=== PATIENT | male | born 1970 | race Caucasian/White ===

== ENCOUNTER 2019-05-21 16:57 | Emergency (ER) | payer MEDICAID, OTHER ==
[~2019-05-21] VITALS: Ht 172.7 cm; Wt 90.0 kg
[~2019-05-21 16:57] MED LIST: GABA300C; LISINOPRIL; METF500T3
[2019-05-21] MEDS ORDERED: SODIUM CHLORIDE 0.9% 1,000 ML IV ONE (18:30)
[2019-05-21] MEDS ORDERED: MORPHINE SULFATE 4 MG/ML CPJ (NOT FOR IM USE) IV STA (18:30)
[2019-05-21] MEDS ORDERED: KETOROLAC 30MG/ML VIAL IV STA (18:30)
[2019-05-21] MEDS ORDERED: CEFTRIAXONE 1 G PREMIX 50 ML IV ONE (18:30)
[2019-05-21] MEDS ORDERED: ONDANSETRON HCL 4MG/2ML INJ IV ONE (18:45)
[2019-05-21 19:46] LABS: BASOPHILS % 0.5 % (0.0-2.0); EOSINOPHILS % 0.3 % (0.0-5.0); HEMATOCRIT. 36.5 % (42.0-52.0); HEMOGLOBIN. 12.3 g/dL (14.0-18.0); LYMPHOCYTES % 13.6 % (20.0-50.0); MEAN CORPUSCULAR VOLUME 77.5 fL (80.0-94.0); MEAN PLATELET VOLUME 8.9 fl (7.4-10.4); MONOCYTES % 4.6 % (2.0-8.0); PLATELET 273 x1000/uL (130-400); RED BLOOD CELL COUNT 4.72 mill/uL (4.7-6.1); RED CELL DISTRIBUTION WIDTH 14.4 % (11.6-14.6)
[2019-05-21 19:50] LABS: CHLORIDE 102 mEq/L (98-107)
[2019-05-21 19:51] LABS: INR 0.9; PROTHROMBIN TIME 9.4 sec (9.6-11.0)
[2019-05-21 20:29] LABS: CLARITY URINE CLEAR (CLEAR); COLOR URINE YELLOW (YELLOW); KETONES URINE TRACE (NEGATIVE); LEUKOCYTE ESTERASE URINE NEGATIVE (NEGATIVE); NITRITE URINE NEGATIVE (NEGATIVE); OCCULT BLOOD URINE TRACE (NEGATIVE); PH URINE 5.5 (4.5-8.0); PROTEIN URINE 3+ (NEGATIVE); SPECIFIC GRAVITY URINE 1.026 (1.005-1.030); UROBILINOGEN URINE 0.2 E.U./dL (0.2-1.0)
[2019-05-21] MEDS ORDERED: HYDROCODONE/ACETAMINOPHEN 5/325MG TABLET PO ONE (21:15)
[2019-05-21 21:41] VITALS: BP 175/88
== END 2019-05-21 21:46 | disposition short-term general hospital (02) ==
LOC: ER 16:57
DX: G89.18 Other acute postprocedural pain (principal); E11.9 Type 2 diabetes mellitus without complications; I10 Essential (primary) hypertension; F12.10 Cannabis abuse, uncomplicated; R55 Syncope and collapse; R11.0 Nausea
CPT/HCPCS: 36415; 71045; 80053; 81003; 82962; 84145; 84484; 85025; 85610; 93005; 96361; 96365; 96375; 99285; J0696; J1885; J2405; J7030

== ENCOUNTER 2021-04-25 00:53 | Emergency (ER) | payer MEDICAID ==
[~2021-04-25] VITALS: Ht 177.8 cm; Wt 105.0 kg
[2021-04-25] MEDS ORDERED: LABETALOL 5MG/ML SYR 20 MG/4 ML SYRINGE IV ONE ×2 (01:30→07:15)
[2021-04-25 01:54] LABS: EOSINOPHILS % 0.9 % (0.0-5.0); HEMATOCRIT. 38.8 % (42.0-52.0); LYMPHOCYTES % 26.5 % (20.0-50.0); MEAN CORPUSCULAR HEMOGLOBIN 27.2 pg (28.0-32.0); MEAN CORPUSCULAR VOLUME 81.3 fL (80.0-94.0); MEAN PLATELET VOLUME 9.1 fl (7.4-10.4); MONOCYTES % 9.7 % (2.0-8.0); NEUTROPHILS % 61.9 % (40.0-76.0); PLATELET 231 x1000/uL (130-400); RED BLOOD CELL COUNT 4.76 mill/uL (4.7-6.1); RED CELL DISTRIBUTION WIDTH 13.4 % (11.6-14.6)
[2021-04-25 01:56] LABS: CHLORIDE 107 mEq/L (98-107)
[2021-04-25 02:00] LABS: ETHANOL BLOOD < 10 mg/dL
[2021-04-25 02:03] LABS: BETA HYDROXYBUTYRATE 0.1 mMol/L (0.0-0.3)
[2021-04-25] MEDS ORDERED: LABETALOL HCL 20MG/4ML CARPUJECT IV ONE (03:30)
[2021-04-25] MEDS ORDERED: LABETALOL 5MG/ML SYR 20 MG/4 ML SYRINGE IV NR (03:45)
[2021-04-25] MEDS ORDERED: IOHEXOL-350 100 ML BOTTLE ONE (06:15)
[2021-04-25] MEDS ORDERED: ASPIRIN 325MG EC TABLET PO ONE (07:30)
[2021-04-25 10:36] LABS: CLARITY URINE CLEAR (CLEAR); COLOR URINE YELLOW (YELLOW); KETONES URINE NEGATIVE (NEGATIVE); LEUKOCYTE ESTERASE URINE NEGATIVE (NEGATIVE); NITRITE URINE NEGATIVE (NEGATIVE); OCCULT BLOOD URINE 1+ (NEGATIVE); PH URINE 6.5 (4.5-8.0); PROTEIN URINE 3+ (NEGATIVE); UROBILINOGEN URINE 0.2 E.U./dL (0.2-1.0)
[2021-04-25 10:40] VITALS: BP 191/86
[2021-04-25 10:46] LABS: *AMPHETAMINES SCREEN URINE NEGATIVE (NEGATIVE)
[2021-04-25 10:47] LABS: *BARBITURATES SCREEN URINE NEGATIVE (NEGATIVE); *BENZODIAZEPINES SCREEN URINE NEGATIVE (NEGATIVE); *COCAINE SCREEN URINE NEGATIVE (NEGATIVE); METHADONE URINE SCREEN NEGATIVE (NEGATIVE); OPIATES URINE SCREEN NEGATIVE (NEGATIVE); PHENCYCLIDINE URINE SCREEN NEGATIVE (NEGATIVE)
[2021-04-25 10:48] LABS: CANNABINOID URINE SCREEN NEGATIVE (NEGATIVE)
== END 2021-04-25 11:03 | disposition short-term general hospital (02) ==
LOC: ER 00:53
DX: R41.82 Altered mental status, unspecified (principal); Z86.73 Personal history of transient ischemic attack (TIA), and cerebral infarction without residual deficits; F32.9 Major depressive disorder, single episode, unspecified; E11.9 Type 2 diabetes mellitus without complications; I10 Essential (primary) hypertension; F12.10 Cannabis abuse, uncomplicated; Z98.890 Other specified postprocedural states
CPT/HCPCS: 36415; 70450; 70496; 70498; 71045; 80053; 80305; 80320; 81003; 82010; 82140; 82962; 84484; 85025; 96374; 96376; 99285; J3490; Q9967; G0480

== ENCOUNTER 2021-09-02 17:45 | Emergency (ER) | payer MEDICAID ==
[~2021-09-02] VITALS: Ht 180.3 cm; Wt 90.0 kg
[2021-09-02 19:37] LABS: CLARITY URINE CLEAR (CLEAR); COLOR URINE YELLOW (YELLOW); KETONES URINE NEGATIVE (NEGATIVE); LEUKOCYTE ESTERASE URINE NEGATIVE (NEGATIVE); NITRITE URINE NEGATIVE (NEGATIVE); OCCULT BLOOD URINE 2+ (NEGATIVE); PROTEIN URINE 3+ (NEGATIVE); SPECIFIC GRAVITY URINE 1.019 (1.005-1.030); UROBILINOGEN URINE 0.2 E.U./dL (0.2-1.0)
[2021-09-02 20:31] LABS: HEMOGLOBIN. 11.3 g/dL (14.0-18.0); MEAN CORPUSCULAR HEMOGLOBIN 27.4 pg (28.0-32.0); MEAN CORPUSCULAR VOLUME 82.9 fL (80.0-94.0); MEAN PLATELET VOLUME 7.5 fl (7.4-10.4); PLATELET 386 x1000/uL (130-400); RED CELL DISTRIBUTION WIDTH 12.9 % (11.6-14.6)
[2021-09-02 20:36] LABS: CHLORIDE 92 mEq/L (98-107)
[2021-09-02 21:00] LABS: PLATELET ESTIMATE NORMAL
[2021-09-02] MEDS ORDERED: CEFEPIME 1,000 MG in DEXTROSE 5% WATER 50 ML IV NR (21:30)
[2021-09-02] MEDS ORDERED: LACTATED RINGERS 1,000 ML IV SCH ×2 (21:30)
[2021-09-02] MEDS ORDERED: METRONIDAZOLE 500MG TABLET PO SCH (21:30)
[2021-09-02] MEDS ORDERED: POTASSIUM CHLORIDE INJ 40 MEQ in DEXT 5% WATER 500 ML IV NR (22:00)
[2021-09-02] MEDS ORDERED: VANCOMYCIN 1500MG in DEXTROSE 5% WATER 250ML IV NR (22:00)
[2021-09-03 02:16] VITALS: BP 166/76
== END 2021-09-03 02:45 | disposition short-term general hospital (02) ==
LOC: ER 17:45
DX: A41.9 Sepsis, unspecified organism (principal); E11.621 Type 2 diabetes mellitus with foot ulcer; E11.65 Type 2 diabetes mellitus with hyperglycemia; I10 Essential (primary) hypertension; F32.A Depression, unspecified; F12.10 Cannabis abuse, uncomplicated; Z79.84 Long term (current) use of oral hypoglycemic drugs; Z86.73 Personal history of transient ischemic attack (TIA), and cerebral infarction without residual deficits; Z89.512 Acquired absence of left leg below knee; Z91.14 Patient's other noncompliance with medication regimen; Z88.8 Allergy status to other drugs, medicaments and biological substances
CPT/HCPCS: 36415; 71045; 73630; 80053; 81003; 82962; 83615; 84145; 85025; 85651; 86140; 87040; 96365; 96366; 96368; 99285; J0692; J3370; J3480; J7060

== ENCOUNTER 2022-01-27 03:26 | Emergency (ER) | payer MEDICAID ==
[~2022-01-27] VITALS: Ht 177.8 cm; Wt 87.0 kg
[2022-01-27] MEDS ORDERED: DEXTROSE 50% WATER 50ML SYRINGE IV ONE (03:45)
[2022-01-27 04:44] LABS: BASOPHILS % 1.2 % (0.0-2.0); EOSINOPHILS % 0.3 % (0.0-5.0); HEMATOCRIT. 31.4 % (42.0-52.0); HEMOGLOBIN. 10.5 g/dL (14.0-18.0); LYMPHOCYTES % 20.3 % (20.0-50.0); MEAN CORPUSCULAR HEMOGLOBIN 27.4 pg (28.0-32.0); MEAN CORPUSCULAR VOLUME 81.6 fL (80.0-94.0); MEAN PLATELET VOLUME 7.9 fl (7.4-10.4); MONOCYTES % 13.4 % (2.0-8.0); NEUTROPHILS % 64.8 % (40.0-76.0); PLATELET 278 x1000/uL (130-400); RED BLOOD CELL COUNT 3.84 mill/uL (4.7-6.1); RED CELL DISTRIBUTION WIDTH 14.1 % (11.6-14.6)
[2022-01-27 04:52] LABS: CHLORIDE 108 mEq/L (98-107)
[2022-01-27] MEDS ORDERED: POTASSIUM CHLORIDE 20MEQ TABLET SR PO SCH (05:15)
[2022-01-27] MEDS ORDERED: DEXTROSE 50% WATER 50ML SYRINGE IV SCH (05:45)
[2022-01-27] MEDS ORDERED: DEXT 10% WATER 1,000 ML IV ONE (06:00)
[2022-01-27] MEDS ORDERED: FUROSEMIDE 40MG TABLET PO ONE (07:00)
[2022-01-27 11:26] VITALS: BP 187/87
[2022-01-27] MEDS ORDERED: ACETAMINOPHEN WITH CODEINE 300/30MG TABLET PO ONE (11:45)
== END 2022-01-27 09:58 | disposition short-term general hospital (02) ==
LOC: ER 03:26
DX: E11.649 Type 2 diabetes mellitus with hypoglycemia without coma (principal); R10.9 Unspecified abdominal pain; F12.10 Cannabis abuse, uncomplicated; I10 Essential (primary) hypertension; Z20.822 Contact with and (suspected) exposure to COVID-19; Z98.890 Other specified postprocedural states; Z88.8 Allergy status to other drugs, medicaments and biological substances; Z86.73 Personal history of transient ischemic attack (TIA), and cerebral infarction without residual deficits
CPT/HCPCS: 36415; 71045; 74176; 80053; 82962; 83880; 84484; 85025; 87426; 96361; 96374; 96375; 99285

== ENCOUNTER 2025-10-11 23:14 | Emergency (ER) | payer MEDICAID ==
[~2025-10-11] VITALS: Ht 167.6 cm; Wt 55.0 kg
[~2025-10-11 23:14] MED LIST changes: +FURO40TA5 PO; +HYDR100T31 PO; +NIFE10CA59 PO; +ROSU20TA2
[2025-10-11 23:44] VITALS: PULSE 72; RESP 20; O2SAT 100
[2025-10-11] MEDS: IPRATROPIUM BROMIDE (0.02%) 0.5MG/2.5ML NEB HHN ONE (23:44)
[2025-10-11] MEDS: ALBUTEROL (0.083%) 2.5MG/3ML NEB HHN ONE (23:45)
[2025-10-11 23:49] LABS: HEMATOCRIT. 31.7 % (42.0-52.0); HEMOGLOBIN. 10.3 g/dL (14.0-18.0); MEAN PLATELET VOLUME 7.4 fl (7.4-10.4); PLATELET 182 x1000/uL (130-400); RED BLOOD CELL COUNT 3.49 mill/uL (4.7-6.1); RED CELL DISTRIBUTION WIDTH 15.7 % (11.6-14.6)
[2025-10-12 00:06] LABS: ETHANOL BLOOD < 10 mg/dL (<10); INR 0.9; PROTEIN TOTAL 7.7 g/dL (6.0-8.3); UREA NITROGEN BLOOD 44 mg/dL (9-23)
[2025-10-12 00:07] LABS: ASPARTATE AMINOTRANSFERASE 11 IU/L (<34); CREATININE 6.7 mg/dL (0.6-1.3); TROPONIN I HIGH SENSITIVITY 37 ng/L (3.0-53)
[2025-10-12 00:08] LABS: BILIRUBIN DIRECT 0.1 mg/dL (<=3.0); BILIRUBIN TOTAL 0.4 mg/dL (0.1-1.0)
[2025-10-12] MEDS: HYDRALAZINE 20MG/ML VIAL IV ONE ×3 (00:32→04:06)
[2025-10-12 00:44] LABS: EOSINOPHILS % MANUAL 2.0 % (0.0-5.0); LYMPHOCYTES % MANUAL 9.0 % (20.0-50.0); MONOCYTES % MANUAL 5.0 % (2.0-8.0); NEUTROPHILS % MANUAL 84.0 % (45.0-75.0); PLATELET ESTIMATE NORMAL
[2025-10-12 01:52] LABS: TROPONIN I HIGH SENSITIVITY 38 ng/L (3.0-53)
[2025-10-12 01:59] LABS: INFLUENZA TYPE A Presumptive Negative (Pres. Neg.)
[2025-10-12 02:00] LABS: INFLUENZA TYPE B Presumptive Negative (Pres. Neg.)
[2025-10-12 02:01] LABS: RESPIRATORY SYNCYTIAL VIRUS Not Detected (Not Detectd)
[2025-10-12] MEDS: ONDANSETRON HCL 4MG/2ML INJ IV ONE (02:03)
[2025-10-12 03:52] VITALS: BP 190/76; PULSE 87; RESP 23; TEMP 36.9; O2SAT 95
== END 2025-10-12 04:22 | disposition short-term general hospital (02) ==
LOC: ER 23:14 → CMPBEDREQ 10-12 07:58
DX: I13.11 Hypertensive heart and chronic kidney disease without heart failure, with stage 5 chronic kidney disease, or end stage renal disease (principal); E11.22 Type 2 diabetes mellitus with diabetic chronic kidney disease; N18.6 End stage renal disease; Z79.899 Other long term (current) drug therapy; Z86.73 Personal history of transient ischemic attack (TIA), and cerebral infarction without residual deficits; Z99.2 Dependence on renal dialysis; Z20.822 Contact with and (suspected) exposure to COVID-19
CPT/HCPCS: 80076; 80048; 80320; 83880; 85025; 85610; 85730; 87420; 84484 ×2; 87804 ×2; 36415 ×2; 71045; 94640; 93005; 99285; 87426; 96374; 96375; 96376; Z7610 ×2; A4615; J0360; J2405; 94070; 94664; 98960; G0480